=== PATIENT | male | born 1990 | race Caucasian/White ===

== ENCOUNTER 2024-11-14 02:44 | Emergency (ER) | payer MEDICAID, SELFPAY ==
[2024-11-14] VITALS (7 sets, daily range): BP systolic 129–181; BP diastolic 66–83; PULSE 62–112; RESP 16–20; TEMP 36.4–37.1; O2SAT 96–99; BMI 34.7
--- NOTE | 2024-11-14 02:55 | PD.EDADULT ---
ED General RME/HPI General Chief complaint: Psychiatric Symptoms Stated complaint: MENTAL EVALUATION Time Seen by Provider: 11/14/24 03:05 Arrival date/time: 11/14/24 02:44 RME / HPI RME / HPI narrative: 34 y/o male with PMHx of substance abuse and ? Schizophrenia who comes in after having visual and auditory hallucinations while at home after smoking crystal meth and also having alcohol. Patient reports that he started feeling anxious and decided to call for an ambulance after he did some drugs where he is is unsure he got them from. He also says that he smoked crystal meth in addition to the drugs and had alcohol with him. Denies any chest pain, shortness of breath, nausea, vomiting, diarrhea. Denies any abdominal pain. He denies having any itchiness or feeling aggressive at this time. He does not feel suicidal at this time. No other complaints at this time. Related Data Allergies Allergy/AdvReac Type Severity Reaction Status Date / Time Penicillins Allergy Mild UNKNOWN Verified 10/03/13 13:41 Review of Systems Review of Systems Narrative Review of Systems: 12 point ROS reviewed and is otherwise negative unless stated directly in the HPI ED Exam Narrative Physical exam: General: AAOx3, anxious at this time HEENT: Moist mucous membranes, conjunctiva clear, EOMI, PERRLA, Cardiovascular: S1, S2, radial pulses +2 bilat, RRR Pulmonary: CTAB bilat no cough, no wheezing GI: No tenderness to light or deep palpitation, no guarding, rigidity, rebound tenderness or distension Skin: Has tattoos, no track christopher visualized Extremities: No presence of trace or pitting edema in lower extremities bilaterally, dorsalis pedis pulses +2 bilaterally Neuro: AAOx3, no focal motor or sensory deficits in the UE or LE bilat Psych: Able to cooperate, anxious does not show full eye contact at this time, auditory and visual hallunications present Course Quality Measures none Orders Category Date Time Status 1799 Psychiatric Hold NOW Care 11/14/24 03:15 Ordered EKG (ED ONLY) *Do not use* NOW Care 11/14/24 02:54 Completed Saline [Insert IV] NOW Care 11/14/24 05:10 Active Vital Signs, Non-Routine Q4H Care 11/14/24 03:15 Ordered Vital Signs, Non-Routine Q4H Care 11/14/24 07:15 Ordered Vital Signs, Non-Routine Q4H Care 11/14/24 11:15 Ordered Vital Signs, Non-Routine Q4H Care 11/14/24 15:15 Ordered Vital Signs, Non-Routine Q4H Care 11/14/24 19:15 Ordered Vital Signs, Non-Routine Q4H Care 11/14/24 23:15 Ordered Referral Psych Eval Stat Cons 11/14/24 03:03 Active EKG (ED Only) Stat Exams 11/14/24 02:53 Ordered Acetaminophen Stat Lab 11/14/24 04:01 Completed Alcohol, Blood Medical Stat Lab 11/14/24 04:01 Completed BNP [B-Type Natriuretic Peptide] Stat Lab 11/14/24 04:01 Completed Bilirubin,Direct Stat Lab 11/14/24 04:01 Completed CBC Stat Lab 11/14/24 04:01 Completed CK [Creatine Kinase] Stat Lab 11/14/24 04:01 Completed CK [Creatine Kinase] Stat Lab 11/14/24 11:51 Completed CMP [Comprehensive Metabolic Panel] Stat Lab 11/14/24 04:01 Completed Drug Screen,Urine Stat Lab 11/14/24 04:30 Completed Lactic Acid [Lactate (Lactic Acid)] Stat Lab 11/14/24 04:01 Completed Mag [Magnesium] Stat Lab 11/14/24 04:01 Completed Phosphorous Stat Lab 11/14/24 04:01 Completed Salicylate Stat Lab 11/14/24 04:01 Completed TSH [Thyroid Stimulating Hormone] Stat Lab 11/14/24 04:01 Completed Urinalysis, C/S if Indicated Stat Lab 11/14/24 04:30 Completed ALPRazoLAM [Xanax] Med 11/14/24 02:53 Discontinued 1 mg PO X1 ONE ALPRazoLAM [Xanax] Med 11/14/24 03:09 Discontinued 2 mg PO X1 ONE Diazepam Inj [Valium Inj] Med 11/14/24 03:01 Discontinued 10 mg IM X1 ONE Diazepam Inj [Valium Inj] Med 11/14/24 04:33 Discontinued 10 mg IM X1 ONE DiphenhydrAMINE INJ [Benadryl Inj] Med 11/14/24 04:33 Discontinued 25 mg IM X1 ONE Haloperidol Lactate [Haldol Inj] Med 11/14/24 03:01 Discontinued 10 mg IM X1 ONE Haloperidol Lactate [Haldol Inj] Med 11/14/24 04:33 Discontinued 10 mg IM X1 ONE Ringers Lactated 1000 ml [Lactated Ringers] 1,000 ml Med 11/14/24 05:10 Discontinued IV 1,000 mls/hr Ringers Lactated 1000 ml [Lactated Ringers] 1,000 ml Med 11/14/24 05:10 Discontinued IV 1,000 mls/hr Sodium Chloride 0.9% 1000 ml [Ns] 1,000 ml Med 11/14/24 06:50 Discontinued IV 999 mls/hr Vital Signs Vital signs: Vital Signs Temperature 98.8 F 11/14/24 06:19 Pulse Rate 112 H 11/14/24 06:19 Respiratory Rate 18 11/14/24 06:19 Blood Pressure 158/80 H 11/14/24 06:19 Pulse Oximetry (%) 98 11/14/24 06:19 Oxygen Delivery Method Room Air 11/14/24 06:19 Discharge Plan Prescriptions/Referrals Referrals: Barry Negrete MD [Primary Care Provider, Family Practice] - In 1 week Problem List Clinical Impression: Methamphetamine intoxication Patient/Caregiver Discharge Instructions Print Language: Vietnamese MDM Narrative MDM hospital course (for use when minimal MDM required): 0300: Seen patient at bedside, due to concern for polysubstance intoxication, will order urine drug screen in addition to blood alcohol level, EKG with basic labs as well. Will initiate 1798 psychiatric hold as pt is becoming less cooperative and give IM Valium and Haldol. 0439: After patient left and then came back to the ER, and multiple code rajani will administer psychiatric cocktail with Benadryl, Valium, and Haldol. 0600: Signed out case to morning ER provider, Dr. Morrison. Medication Administration(s) Medication Administration History Discontinued Medications Alprazolam (Alprazolam 0.25 Mg Tablet) 1 mg PO X1 ONE Stop: 11/14/24 02:54 Last Admin: 11/14/24 03:46 Dose: Not Given Documented By: JENNIFER Non-Admin Reason: Cancelled by Provider Alprazolam (Alprazolam 0.25 Mg Tablet) 2 mg PO X1 ONE Stop: 11/14/24 03:10 Last Admin: 11/14/24 03:15 Dose: 2 mg Documented By: DYLAN Diazepam (Diazepam Inj 5 Mg/Ml Vial 2 Ml) 10 mg IM X1 ONE Stop: 11/14/24 03:02 Last Admin: 11/14/24 03:46 Dose: Not Given Documented By: JENNIFER Non-Admin Reason: Cancelled by Provider Diazepam (Diazepam Inj 5 Mg/Ml Vial 2 Ml) 10 mg IM X1 ONE Stop: 11/14/24 04:34 Last Admin: 11/14/24 04:40 Dose: 10 mg Documented By: NATALIIA Diphenhydramine HCl (Diphenhydramine Inj 50 Mg/Ml Vial) 25 mg IM X1 ONE Stop: 11/14/24 04:34 Last Admin: 11/14/24 04:41 Dose: 25 mg Documented By: NATALIIA Haloperidol Lactate (Haloperidol Lact Inj 5 Mg/Ml Vial) 10 mg IM X1 ONE Stop: 11/14/24 03:02 Last Admin: 11/14/24 03:46 Dose: Not Given Documented By: JENNIFER Non-Admin Reason: Cancelled by Provider Haloperidol Lactate (Haloperidol Lact Inj 5 Mg/Ml Vial) 10 mg IM X1 ONE Stop: 11/14/24 04:34 Last Admin: 11/14/24 04:42 Dose: 10 mg Documented By: NATALIIA Lactated Ringer's (Lactated Ringers) 1,000 mls @ 1,000 mls/hr IV .Q1H ONE Stop: 11/14/24 06:09 Last Infusion: 11/14/24 07:05 Dose: Infused Documented By: Admin: 11/14/24 06:04 Dose: 1,000 mls/hr Documented By: NATALIIA Lactated Ringer's (Lactated Ringers) 1,000 mls @ 1,000 mls/hr IV .Q1H ONE Stop: 11/14/24 06:09 Last Infusion: 11/14/24 08:02 Dose: Infused Documented By: Admin: 11/14/24 07:02 Dose: 1,000 mls/hr Documented By: NATALIIA Sodium Chloride (Ns) 1,000 mls @ 999 mls/hr IV .Q1H1M ONE Stop: 11/14/24 07:50 Last Infusion: 11/14/24 09:31 Dose: Infused Documented By: Admin: 11/14/24 08:30 Dose: 999 mls/hr Documented By: SID Diagnosis Diagnoses ruled out and/or further discussions: Drug intoxication, methamphetamine intoxication, anxiety, polysubstance intoxication
--- NOTE | 2024-11-14 03:27 | PC.NURSE ---
Patient is currently under 1799 hold. At 031, a Code Hopper was called due to the patient attempting to elope. ED staff made multiple attempts to verbally redirect the patient, but the patient was noncompliant and continued toward the exit. The patient exited through the ambulance bay and left the premises. Code Hopper was cleared at 032 after the scene was deemed safe. Per charge nurse that pt ran. LILLIAN was contacted at 033 and spoke to Lady about situation.
--- NOTE | 2024-11-14 03:42 | PC.NURSE ---
this rn called ppd again to explain to ppd that izzy carrasco ruiz is lingering infront of er. this rn explained to mariaelena that pt is on a 1798 hold and needs to get brought in with help from ppd
--- NOTE | 2024-11-14 03:57 | PC.NURSE ---
pt was brought back in by ppd. currently two ppd officers at bedside with pt
[2024-11-14 04:11] LABS: Basophils # (Auto) 0.0 Thou/mm3 (0.0-0.2); Basophils % (Auto) 0 % (0-2.5); Eosinophils # (Auto) 0.1 Thou/mm3 (0.0-0.5); Eosinophils % (Auto) 1 % (0-10); Hematocrit 47.5 % (41.0-53.0); Hemoglobin 16.7 g/dL (13.5-16.0); Immature Granulocytes Auto 0.03 Thou/mm3 (0.00-0.00); Lymphocytes # (Auto) 1.5 Thou/mm3 (1.0-4.8); Lymphocytes % (Auto) 15 % (10-50); Mean Corpuscular HGB Conc 35.2 g/dl (31.0-37.0); Mean Corpuscular Hemoglobin 30.8 pg (25.0-35.0); Mean Corpuscular Volume 88 fL (80-100); Monocytes # (Auto) 0.8 Thou/mm3 (0.0-0.8); Monocytes % (Auto) 8 % (0-12); Neutrophils # (Auto) 7.2 Thou/mm3 (1.8-7.7); Neutrophils % (Auto) 75 % (37-80); Nucleated Red Blood Cell # 0.00 Thou/mm3 (0.00-0.00); Nucleated Red Blood Cell % 0 /100 WBC (0); Platelet Count 252 Thou/mm3 (140-440); RDW Standard Deviation 38.0 fL (35.1-43.9); Red Blood Count 5.43 Miln/mm3 (4.50-5.90); White Blood Count 9.6 Thou/mm3 (3.8-10.6)
[2024-11-14 04:15] LABS: Lactate (Lactic Acid) 1.9 mMol/L (0.4-2.0)
--- NOTE | 2024-11-14 04:32 | PC.NURSE ---
sreedhar wolf called 0432. pt left room. this rn attempted to redirect pt with no luck. pt started to walk around nurses office
[2024-11-14] MEDS: DIAZEPAM INJ 5 MG/ML VIAL 2 ML 10 MG IM (04:40)
[2024-11-14 04:42] LABS: Collection Type, Urine Catheter
[2024-11-14] MEDS: HALOPERIDOL LACT INJ 5 MG/ML VIAL 10 MG IM (04:42)
[2024-11-14 04:43] LABS: Acetaminophen < 2.0 mcg/mL (10.0-20.0); Alanine Aminotransferase 76 U/L (10-49); Albumin, Serum 4.9 gm/dL (3.5-5.0); Albumin/Globulin Ratio 2.0 (1.2-2.2); Alcohol, Blood Medical < 3.0 mg/dL (0-10.0); Alkaline Phosphatase 111 U/L (46-116); Anion Gap 10 (7-16); Aspartate Amino Transferase 138 U/L (0-34); BUN/Creatinine Ratio 8 Ratio (12-20); Bilirubin,Direct 0.6 mg/dL (0.0-0.3); Bilirubin,Total 1.6 mg/dL (0.3-1.2); Blood Urea Nitrogen 10 mg/dL (9-23); Calcium 9.6 mg/dL (8.3-10.6); Calcium (Corrected) 9.6 mg/dL (8.5-10.1); Carbon Dioxide 27.6 mMol/L (20.0-31.0); Chloride 102 mMol/L (98-107); Creatinine (Component) 1.2 mg/dL (0.6-1.3); Globulin 2.5 gm/dL (2.3-3.5); Glucose 126 mg/dL (74-106); Magnesium 1.9 mg/dL (1.6-2.6); Osmolality,Calculated 280 (275-295); Phosphorous 3.3 mg/dL (2.4-5.1); Potassium 3.7 mMol/L (3.4-5.1); Salicylate < 3.0 mg/dL; Sodium 140 mMol/L (136-145); Thyroid Stimulating Hormone 1.14 uIU/mL (0.55-4.78); Total Protein 7.4 gm/dL (5.7-8.2); eGFR > 60 See Note
[2024-11-14 04:54] LABS: Amorphous Crystals,Urine Present (Absent); Bilirubin,Urine Negative (Negative); Blood,Urine Negative (Negative); Clarity,Urine Turbid (Clear/Hazy); Color,Urine Yellow (Lt Yel-Yel); Culture Indicated,Urine Not Indicated; Glucose, Urine Negative (Negative); Ketones,Urine 1+ (Negative); Leukocyte Esterase,Urine Negative (Negative); Nitrite,Urine Negative (Negative); PH,Urine 6.0 (5.0-7.0); Protein,Urine 1+ (Neg - Trace); RBC,Urine < 1 /hpf (0-3); Specific Gravity,Urine 1.035 (1.001-1.035); Squamous Epithelial Cell,Urine < 1 /hpf (0-5); Urobilinogen,Urine Negative mg/dL (0.0-1.0); WBC,Urine < 1 /hpf (0-5)
[2024-11-14 05:05] LABS: Creatine Kinase 3501 U/L (34-171)
[2024-11-14 05:05] LABS: Amphetamine/Methamp Scrn,U Positive (Negative); Barbiturate Screen,Urine Negative (Negative); Benzodiazepines Screen,Urine Negative (Negative); Benzoylecgonine Screen, Ur Negative (Negative); Fentanyl Screen,Urine Negative (Negative); Opiate Screen,Urine Negative (Negative); THC Screen,Urine Positive (Negative)
[2024-11-14] MEDS: RINGERS LACTATED 1000 ML 1,000 ML IV ×3 (06:04→21:39)
--- NOTE | 2024-11-14 07:20 | EDNOTE_ITS ---
Emergency Room Addendum <Genie Morrison MD - Last Filed: 11/14/24 07:20> Addendum Narrative: Assumed care of patient at change of shift. <Catie Angelo - Last Filed: 11/14/24 17:23> Addendum Narrative: 0600: Care assumed from Dr. Campuzano PGY2, the previous shift emergency physician. Past medical, surgical, social and family history reviewed. Vitals and home medications reviewed. I will assume the care of the patient at this time, pending repeat labs for medical clearance vs admission. Please refer to the emergency department record for history and examination from initial visit.?The following addendum documentation note is intended to reflect any pending information, findings, or radiology results not included in the patient?s initial chart. 1035a: Ordered repeat CK. 1325p: CK has improved. Pt medically cleared for mental health evaluation. 1455p: Patient has been evaluated by social science teacher and placed on a 5150 hold, at this time pending LPS facility placement. 1800p: Care signed out to Dr. Narayanan pending LPS facility placement.
[2024-11-14] MEDS: SODIUM CHLORIDE 0.9% 1000 ML 1,000 ML 999 ML IV (08:30)
[2024-11-14 08:52] LABS: B-Type Natriuretic Peptide < 20 pg/mL (0-100)
--- NOTE | 2024-11-14 11:09 | PC.CC ---
Addendum entered by Brenna Louis 11/14/24 16:09: Pt is on a 5150 DTS. Pending LPS placement. ASW will f/u in the AM for Placement acceptance. Original Note: 1109-TOOL ENGINEER Ruby Software Developer Ary Lr contacted assigned RN to ask if pt is medically cleared and per Dr. Morrison, pt is not medically cleared for a MH eval.
[2024-11-14 13:00] LABS: Creatine Kinase 2117 U/L (34-171)
--- NOTE | 2024-11-14 18:17 | PD.EDADDENDU ---
Emergency Room Addendum <Bhavani Stevenson - Last Filed: 11/14/24 18:18> Addendum Narrative: I took over the care from previous shift physician at 6 PM on 11/14/2024. See previous notes for complete H & P and ED course. I reviewed all diagnostic test results. My interpretation of the EKG is My interpretation of the chest x-ray is My review of the CT report is Blood tests and urine tests Covid/Influenza: Diagnoses include: Treatment here included Not yet done: I discussed the case with our hospitalist. About the presentation and exam and diagnostics and treatments here. And need of further care in the hospital. Will accept the patient. Not yet done: Based on my best medical judgment, made decision no further evaluation or treatment indicated at this time. Patient understands and agrees to the discharge instructions customized and printed, see below. Mario Narayanan MD <Mario Narayanan MD - Last Filed: 11/14/24 23:54> Addendum Narrative: I took over the care from previous shift physician, Dr. Morrison, at 6 PM on 11/14/2024. See previous notes for complete H & P and ED course. I reviewed all diagnostic test results. Diagnoses include: Psychosis Rhabdomyolysis Methamphetamine tox occasion Treatment here included: IV fluid At 6 AM on 11/15/2024, the care of the patient was transferred to Dr. MORRISON. During my watch, the patient remained stable. Mario Narayanan MD
[2024-11-14 22:15] LABS: Anion Gap 7 (7-16); BUN/Creatinine Ratio 10 Ratio (12-20); Blood Urea Nitrogen 9 mg/dL (9-23); Calcium 8.7 mg/dL (8.3-10.6); Carbon Dioxide 29.9 mMol/L (20.0-31.0); Chloride 107 mMol/L (98-107); Creatinine (Component) 0.9 mg/dL (0.6-1.3); Estimated Creatinine Clearance 159.3 mL/min (>60); Glucose 102 mg/dL (74-106); Osmolality,Calculated 285 (275-295); Potassium 3.5 mMol/L (3.4-5.1); Sodium 144 mMol/L (136-145); eGFR > 60 See Note
[2024-11-14 22:27] LABS: Creatine Kinase 2015 U/L (34-171)
[2024-11-15] VITALS: BP 124/62; PULSE 83; RESP 16; TEMP 36.6; O2SAT 97
[2024-11-15] MEDS: RINGERS LACTATED 1000 ML 1,000 ML 125 ML IV (00:42)
[2024-11-15 04:00] VITALS: BP 129/71; PULSE 80; RESP 16; TEMP 36.7; O2SAT 98
[2024-11-15 06:39] VITALS: BP 130/78; PULSE 80; RESP 19; TEMP 36.4; O2SAT 97
--- NOTE | 2024-11-15 07:32 | PC.CC ---
0752-ASW submitted to [facility] for LPS placement.
--- NOTE | 2024-11-15 08:59 | PC.CC ---
Addendum entered by Brenna Louis 11/15/24 11:04: 0710-ASW met with pt at bedside to conduct a re-evaluation and pt at this moment disclosed SI w/plan. Pt did not admit to SI with plan on the day of the initial assessment; however, at this time, he does present as suicidal with plan by running into traffic. Pt was very apologetic about his behavior at the ED and stated he wants help. ASW provided psychoeducation to the pt regarding substance use/abuse with existing diagnosis and pt understood. Pt understands that he was accepted to [facility] and will transport today at 1130. Pt was provided the Rights for Individuals in Mental Health Facilities booklet. Addendum entered by Brenna Louis 11/15/24 10:56: LATE ENTRY: On 11/14/24, ASW-Brenna Louis met with patient [id number] to complete assessment. ASW introduced self, role, and reason for assessment. ASW disclosed limits of confidentiality as well. Patient appeared alert and oriented to self, place, and situation. Patient was pleasant; his mood appeared depressed; his behavior appeared disinhibited with flat affect. Patient?s thought process was linear and organized. No signs of delusions, paranoid or AVH, but pt admitted to daily audio and visual hallucinations that are commanding, telling him to harm self. ASW asked pt what led him here to the hospital and pt reported that he has been doing drugs for the past few days because due to working 2 jobs non stop. Pt admits to using Methamphetamine via smoking with a pipe. Pt reports that a few months ago he ingested a rock of meth and ever since then his hallucinations have gotten worse. Pt reports that prior to ingesting Methamphetamine, he was experiencing hallucinations. Pt admits to dx of schizophrenia and bipolar dx as well as a dx of methamphetamine use disorder. Pt reports he is a client of [facility] and his therapist is Christiano. Pt stated this week he was supposed to starting seeing a psychiatrist, but ended up in the hospital. Pt presented as paranoid, states people are going to kill him and his family, states people from the past, who are alive and , are following him everywhere he goes. Pt reports the voices tell him that his is not worthy of living and tell him to hurt himself. Pt reports he is scared to go home and is afraid of what may happen if he goes home. Pt denie SI/HI, denies h/o MH hospitalizations and denies ever being in crisis in the past. Pt reports he recently broke up with his girlfriend and resides with his mother and brother. Pt reports he wants help. ASW explained the process of a safety plan and a Hold and pt reports he would feel safer being placed on a hold as he feels he will . ASW staffed this case with Fina Alvares LCSW and it was determined that the best course of plan would be to place the pt on a 5150 Hold for gravely disabled. ASW staffed this with Dr. Morrison ER provider and she agreed. elevator mechanic apprentice and assigned RN are aware of the hold and ASW will upload case to [facility] for LPS placement. Original Note: 0857-Pt accepted to [facility] Janine SOTOMAYOR from Intake accepted, Dr. Harrison is the accepting provider, staff will accept pt. Nurse to Nurse [phone]. ASW will arrange transportation.
[2024-11-15 09:00] VITALS: BP 136/84; PULSE 73; RESP 18; TEMP 36.3; O2SAT 95
--- NOTE | 2024-11-15 09:09 | PD.EDADDENDU ---
Emergency Room Addendum Addendum Narrative: 0600: Care assumed from Dr. Narayanan, the previous shift emergency physician. Past medical, surgical, social and family history reviewed. Vitals and home medications reviewed. I will assume the care of the patient at this time, pending LPS facility placement. Please refer to the emergency department record for history and examination from initial visit.?The following addendum documentation note is intended to reflect any pending information, findings, or radiology results not included in the patient?s initial chart. Patient has been accepted to [facility]. 1110h: Patient has remained stable through ED course. EMS here to transfer the patient.
[2024-11-15 11:14] VITALS: BP 142/79; PULSE 77; RESP 18; TEMP 36.4; O2SAT 98
--- NOTE | 2024-11-15 13:19 | PC.CC ---
Addendum entered by Brenna Louis 11/15/24 13:27: Paris Cabello [phone] also asked security for Courtney's contact information to file a complaint. Original Note: 919-ASW received a call from pts alleged girlfriend named Paris Cabello which she demanded that the pt be discharged home immediately. Paris stated that the pt is being treated unfairly and wants to speak with Courtney, the toe sewer and anyone who can over rule my call on the 5150 Hold. ASW explained that there is limited information that I can share with her as pt only allowed me to speak with her regarding the Hold and no other details. Paris stated, I don't believe that. MOOSEW also explained that the pt has requested no visitors and toe sewer does not want visitors as well, as it will only aggravate the pt. ASW attempted to explain to Paris of the decisions made were in the best interest of the pt and she still attempted to argue and demand that she see the pt. Paris stated that food writer did not do a through investigation and the hold was invalid because the pt was under the influence during the time of the assessment. ASW listened to the Paris as limited information could be disclosed. ASW told Paris the process of the Hold and she can always call [facility] and ask them their rules about visits/phone calls to the pt. Paris was very upset and cussing at this food writer demanding that the pt should be released. ASW kindly ended the call.
== END 2024-11-15 11:15 ==
PROVIDERS: Emergency Medicine; Emergency Provider Emergency Medicine; PCP Family Medicine
DX: Z04.6 Encounter for general psychiatric examination, requested by authority (principal); F15.129 Other stimulant abuse with intoxication, unspecified; F20.9 Schizophrenia, unspecified; M62.82 Rhabdomyolysis; Z75.1 Person awaiting admission to adequate facility elsewhere
CPT/HCPCS: 36415; 80048; 80053; 80307; 80320; 80329; 81001; 82248; 82550; 83605; 83735; 83880; 84100; 84443; 85025; 93005; 96127; 96360; 96361; 96372; 99284; J1200; J1630; J3360; J7030; J7120; A9270; G0480

== ENCOUNTER 2024-11-21 11:52 | Emergency (ER) | payer MEDICAID, SELFPAY ==
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
[2024-11-21] MEDS: OLANZapine INJ 10 MG, Sterile Water 2.1 ML IM (12:09)
[2024-11-21 12:15] VITALS: BMI 36.9
[2024-11-21 12:30] VITALS: BP 156/91; PULSE 132; RESP 18; TEMP 36.8; O2SAT 96
[2024-11-21 12:31] LABS: Basophils # (Auto) 0.0 Thou/mm3 (0.0-0.2); Basophils % (Auto) 0 % (0-2.5); Eosinophils # (Auto) 0.0 Thou/mm3 (0.0-0.5); Eosinophils % (Auto) 0 % (0-10); Hematocrit 49.8 % (41.0-53.0); Hemoglobin 17.0 g/dL (13.5-16.0); Immature Granulocytes Auto 0.05 Thou/mm3 (0.00-0.00); Lymphocytes # (Auto) 1.6 Thou/mm3 (1.0-4.8); Lymphocytes % (Auto) 14 % (10-50); Mean Corpuscular HGB Conc 34.1 g/dl (31.0-37.0); Mean Corpuscular Hemoglobin 30.0 pg (25.0-35.0); Mean Corpuscular Volume 88 fL (80-100); Monocytes # (Auto) 1.0 Thou/mm3 (0.0-0.8); Monocytes % (Auto) 9 % (0-12); Neutrophils # (Auto) 8.6 Thou/mm3 (1.8-7.7); Neutrophils % (Auto) 76 % (37-80); Nucleated Red Blood Cell # 0.00 Thou/mm3 (0.00-0.00); Nucleated Red Blood Cell % 0 /100 WBC (0); Platelet Count 343 Thou/mm3 (140-440); RDW Standard Deviation 39.8 fL (35.1-43.9); Red Blood Count 5.66 Miln/mm3 (4.50-5.90); White Blood Count 11.3 Thou/mm3 (3.8-10.6)
--- NOTE | 2024-11-21 12:37 | PC.NURSE ---
called [employer] and asked Yoana if Officer She can come by and stand by so I can medicate pt. Yoana states she will ask the Officer.
[2024-11-21 12:50] LABS: Alanine Aminotransferase 46 U/L (10-49); Albumin, Serum 5.6 gm/dL (3.5-5.0); Albumin/Globulin Ratio 2.1 (1.2-2.2); Alcohol, Blood Medical < 3.0 mg/dL (0-10.0); Alkaline Phosphatase 120 U/L (46-116); Anion Gap 14 (7-16); Aspartate Amino Transferase 44 U/L (0-34); BUN/Creatinine Ratio 11 Ratio (12-20); Bilirubin,Total 0.9 mg/dL (0.3-1.2); Blood Urea Nitrogen 12 mg/dL (9-23); Calcium 10.5 mg/dL (8.3-10.6); Calcium (Corrected) 10.5 mg/dL (8.5-10.1); Carbon Dioxide 24.5 mMol/L (20.0-31.0); Chloride 105 mMol/L (98-107); Creatinine (Component) 1.1 mg/dL (0.6-1.3); Estimated Creatinine Clearance 130.9 mL/min (>60); Globulin 2.7 gm/dL (2.3-3.5); Glucose 101 mg/dL (74-106); Osmolality,Calculated 284 (275-295); Potassium 3.9 mMol/L (3.4-5.1); Sodium 143 mMol/L (136-145); Total Protein 8.3 gm/dL (5.7-8.2); eGFR > 60 See Note
[2024-11-21] MEDS: DIAZEPAM INJ 5 MG/ML VIAL 2 ML 10 MG IM (12:53)
--- NOTE | 2024-11-21 12:53 | PC.NURSE ---
Officer Josh and Officer She here, pt. medicated, tolerated well.
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
--- NOTE | 2024-11-21 19:48 | PC.NURSE ---
Pt resting with eyes closed. Respirations are even and unlabored. No s/s of acute distress noted. 1:1 sitter at bedside. Plan of care ongoing.
--- NOTE | 2024-11-21 23:15 | PC.NURSE ---
At this time, pt is awake/alert/orientedx3. Respirations are even and unlabored. No s/s of acute distress noted. Pt denies of any thoughts of harming self/others. Pt is cooperative. All harmful objects removed from room, 1:1 sitter at bedside. Plan of care ongoing.
[2024-11-21 23:20] VITALS: BP 134/75; PULSE 94; RESP 17; TEMP 36.4; O2SAT 97
[2024-11-22 01:06] LABS: Amphetamine/Methamp Scrn,U Positive (Negative); Barbiturate Screen,Urine Negative (Negative); Benzodiazepines Screen,Urine Positive (Negative); Benzoylecgonine Screen, Ur Negative (Negative); Fentanyl Screen,Urine Negative (Negative); Opiate Screen,Urine Negative (Negative); THC Screen,Urine Positive (Negative)
[2024-11-22] MEDS: GABAPENTIN 100 MG CAPSULE 200 MG PO (02:24)
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
[2024-11-22 06:50] VITALS: BP 126/75; PULSE 82; RESP 17; TEMP 36.6; O2SAT 96
--- NOTE | 2024-11-22 07:03 | EDNOTE_ITS ---
Emergency Room Addendum <Catie Angelo - Last Filed: 11/22/24 09:54> Addendum Narrative: 0600a: Care assumed from Dr. Rocha(emergency physician). Past medical, surgical, social and family history reviewed. Vitals and home medications reviewed. Results and treatment plan discussed. They will assume the care of the patient at this time and will follow the patient, pending psychiatric evaluation. Patient is medically cleared. 0945a: Patient has been evaluated by our social work program coordinator who has rescinded the 5150 hold. State the patient has an appointment scheduled with therapist at the [facility] at 3PM. Patient has remained stable during my watch. Will DC home. MD Attestation <Yoana Aly MD - Last Filed: 11/22/24 07:04> MD Attestation Care assumed from Dr. Corona(emergency physician). Past medical, surgical, social and family history reviewed. Vitals and home medications reviewed. Results and treatment plan discussed. They will assume the care of the patient at this time and will follow the patient, pending psychiatric evaluation. Patient is medically cleared.
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
[2024-11-22 10:01] VITALS: BP 131/79; PULSE 94; RESP 16; TEMP 36.7; O2SAT 98
== END 2024-11-22 10:02 | disposition home or self-care (01) ==
PROVIDERS: Registered Nurse General Practice; Emergency Provider Family Medicine
DX: F20.9 Schizophrenia, unspecified (principal)
CPT/HCPCS: 36415; 80053; 80307; 80320; 85025; 96127; 96372; 99283; A4216; J2358; J3360; A9270; G0480; J2359